=== PATIENT | male | born 1965 | race Caucasian/White ===

== ENCOUNTER 2018-03-25 23:30 | Observation (INO) ==
[2018-03-26] MEDS ORDERED: Sod Chloride 0.9% Inj 1,000 ML IV.SIG ONE (02:15)
[2018-03-26 02:44] LABS: Baso % (Auto) 0.6 % (0.0-2.0); Eos # (Auto) 0.4 th/mm3 (0.0-0.4); Eos % (Auto) 7.5 % (0.0-4.0); Hematocrit 40.6 % (39.0-51.0); Hemoglobin 13.8 gm/dL (13.0-17.0); Lymph # (Auto) 3.1 th/mm3 (1.0-4.8); Lymph % (Auto) 51.5 % (9.0-44.0); Mean Corpuscular Hemoglobin 31.9 pg (27.0-34.0); Mean Corpuscular Volume 93.9 fL (80.0-100.0); Mean Platelet Volume 7.1 fL (7.0-11.0); Mono # (Auto) 0.5 th/mm3 (0.0-0.9); Mono % (Auto) 7.9 % (0.0-8.0); Neut # (Auto) 1.9 th/mm3 (1.8-7.7); Neut % (Auto) 32.5 % (16.0-70.0); Platelet Count 194 th/mm3 (150-450); Red Blood Count 4.33 mil/mm3 (4.50-5.90); Red Cell Distribution Width 13.6 % (11.6-17.2); White Blood Count 5.9 th/mm3 (4.0-11.0)
[2018-03-26 02:53] LABS: Chloride 104 meq/L (98-107); Potassium 3.2 meq/L (3.5-5.1); Sodium 137 meq/L (136-145)
[2018-03-26 02:56] LABS: Calcium 8.4 mg/dL (8.5-10.1)
[2018-03-26 02:57] LABS: Albumin 3.7 g/dL (3.4-5.0); Anion Gap 7 meq/L (5-15); Blood Urea Nitrogen 18 mg/dL (7-18); Carbon Dioxide 25.9 meq/L (21.0-32.0); Glucose,Random 93 mg/dL (74-106); Magnesium 2.1 mg/dL (1.5-2.5)
[2018-03-26 03:00] LABS: Alanine Aminotransferase 55 U/L (12-78); Aspartate Aminotransferase 66 U/L (15-37); Glomerular Filtration Rate 81 mL/min (>89)
[2018-03-26 03:01] LABS: Total Protein 7.2 g/dL (6.4-8.2)
[2018-03-26 03:02] LABS: Alkaline Phosphatase 85 U/L (45-117)
--- NOTE | 2018-03-26 03:27 | CT ---
EXAM DATE: 03/26/2018 3:21 AM EDT AGE/SEX: 52 years / Male INDICATIONS: Tunnel vision. Feels faint. Trauma to head. CLINICAL DATA: This is the patient's initial encounter. Patient reports that signs and symptoms have been present for 1 day and indicates a pain score of 1/10. MEDICAL/SURGICAL HISTORY: . Chronic back pain. . Hernia repair. Unspecified Orthopedic surgery. RADIATION DOSE: 50.59 CTDI (mGy) COMPARISON: No prior exams available for comparison. TECHNIQUE: CT of the head without contrast. Using automated exposure control and adjustment of the mA and/or kV according to patient size, radiation dose was kept as low as reasonably achievable to ob tain optimal diagnostic quality images. DICOM format image data is available electronically for revi ew and comparison. FINDINGS: Cerebrum: The ventricles are normal for age. No evidence of midline shift, mass lesion, hemorrhage or acute infarction. No extraaxial fluid collections are seen. Posterior Fossa: The cerebellum and brainstem are intact. The 4th ventricle is midline. The cerebe llopontine angle is unremarkable. Extracranial: The visualized portion of the orbits is intact. Skull: The calvaria is intact. No evidence of skull fracture. CONCLUSION: 1. No acute intracranial abnormalities. Mucosal thickening in the paranasal sinuses. . Electronically signed by: Moise Mccain MD 03/26/2018 3:26 AM EDT
--- NOTE | 2018-03-26 03:27 | ED ---
HPI General Chief Complaint: Syncope Stated Complaint: Tunnel vision feels faint Time Seen by Provider: 03/26/18 02:11 Source: patient Mode of arrival: ambulatory Limitations: no limitations History of Present Illness HPI Narrative: 52-year-old male who presents to the emergency department for fatigue lightheadedness feeling as if he is going to pass out as he stands up feels like he has tunnel vision that improves when he lays down. Patient denies chest pain or shortness of breath. Patient states he is very fatigued. Patient states he has been walking from [place] to [facility] for a new job. Patient complains of bipedal pain. Patient's had no lower extremity leg pain or swelling. Patient denies nausea vomiting or diaphoresis. Patient's had no fever chills. Patient admits to alcohol use denies substance use. Patient also admits to fall 3 days ago and his head he does not know if he had loss of consciousness or not. Patient has had some headaches since that time. Symptoms seem to be worsened by movement and activity and relieved by laying down or resting. MD complaint: dizziness, lightheadedness and near syncope Onset (ago): hour(s) (since 10:30 pm Monday) Timing: gradual onset Description: lightheadedness History of similar episodes: No History of trauma: Yes Severity: moderate Relieving factors: remaining still Exacerbating factors: movement Associated symptoms: weakness Related Data Home Medications Medication Instructions Recorded Confirmed No Known Home Medications 03/26/18 03/26/18 Allergies Allergy/AdvReac Type Severity Reaction Status Date / Time No Known Allergies Allergy Verified 03/26/18 02:21 Review of Systems ROS: all other systems reviewed are negative [facility] Medical History Medical History History of chronic back pain (Acute) Surgical History Surgical History History of hernia repair (Acute) History of orthopedic surgery (Acute) Social History Social History Substance History: No History of Abuse Smoking Status: Current every day smoker Tobacco Type: Cigarettes How Often Do You Have a Drink Containing Alcohol: 4 or more times a week Recent Out of Country Travel within the Last 8 Weeks: No Immunization History Tetanus Immunization: <5 Years Hx Influenza Vaccine This Season: No Exam Narrative Exam Narrative: GENERAL: Well-developed disheveled male in no acute distress no respiratory distress GCS 15 SKIN: Focused skin assessment warm/dry. HEAD: Atraumatic. Normocephalic. Except for superficial abrasion to the frontal scalp and supraorbital at the left eyebrow abrasion with scabbing in place noted EYES: Pupils equal and round. No scleral icterus. No injection or drainage. ENT: No nasal bleeding or discharge. Mucous membranes pink and moist. NECK: Trachea midline. No JVD. CARDIOVASCULAR: Regular rate and rhythm. No murmur appreciated. RESPIRATORY: No accessory muscle use. Clear to auscultation. Breath sounds equal bilaterally. GASTROINTESTINAL: Abdomen soft, non-tender, nondistended. Hepatic and splenic margins not palpable. MUSCULOSKELETAL: No obvious deformities. No clubbing. No cyanosis. No edema. NEUROLOGICAL: Awake and alert. No obvious cranial nerve deficits. Motor grossly within normal limits. Normal speech. PSYCHIATRIC: Appropriate mood and affect; insight and judgment normal. Course Initial Documented Vital Signs Temperature 97.7 F 03/25/18 23:47 Pulse Rate 78 03/25/18 23:47 Respiratory Rate 18 03/25/18 23:47 Blood Pressure 116/81 03/25/18 23:47 Pulse Oximetry 96 03/25/18 23:47 Last Documented Vital Signs Temperature 97.7 F 03/25/18 23:47 Pulse Rate 55 L 03/26/18 05:32 Respiratory Rate 16 03/26/18 05:32 Blood Pressure 96/63 L 03/26/18 05:32 Pulse Oximetry 99 03/26/18 05:32 Medical Decision Making [facility] Narrative Medical decision making narrative: 52-year-old male presents stating that he feels like he is having tunneling vision like he might pass out. Patient reports he did have a fall 3 days ago and hit his head does not recall having loss of consciousness. No neck pain no arm or leg numbness tingling or weakness. Patient states she is very fatigued and has been walking since from [place] on his way to [facility]. Patient complains of bilateral foot pain secondary to fatigue. Patient does not report any chest pain or shortness of breath or sweats or nausea or vomiting. Patient denies any chronic medical conditions and takes no prescription medications reportedly. Urine drug screen positive for cocaine; patient's cardiac enzymes are in normal range; patient has been given 2 L of fluid and remains low blood pressure with bradycardia; patient given oral replacement potassium Patient will be admitted to medicine service for evaluation of arrhythmia and serial cardiac enzymes Patient's case discussed with Dr. Gayle Medical Screen Exam Complete: Yes Emergency Medical Condition: Yes Differential Diagnosis Differential Diagnosis: Near syncope, syncope, arrhythmia, electrolyte disturbance, ACS, VA, anemia, substance ingestion, alcohol intoxication, minor closed head injury, ICH, thyroid dysfunction Medical Records Medical records reviewed: Yes I reviewed the patient's medical records. no prior records Lab Data Lab results reviewed: Yes I reviewed the patient's lab results. Result diagrams: 03/26/18 02:35 03/26/18 02:35 Lab Results 03/26/18 03/26/18 03/26/18 Range/Units 02:35 02:35 03:15 CBC w Diff Auto diff final WBC 5.9 (4.0-11.0) th/mm3 RBC 4.33 L (4.50-5.90) mil/mm3 Hgb 13.8 (13.0-17.0) gm/dL Hct 40.6 (39.0-51.0) % MCV 93.9 (80.0-100.0) fL MCH 31.9 (27.0-34.0) pg MCHC 34.0 (32.0-36.0) % RDW 13.6 (11.6-17.2) % Plt Count 194 (150-450) th/mm3 MPV 7.1 (7.0-11.0) fL Neut % (Auto) 32.5 (16.0-70.0) % Lymph % (Auto) 51.5 H (9.0-44.0) % [place] % (Auto) 7.9 (0.0-8.0) % Eos % (Auto) 7.5 H (0.0-4.0) % Baso % (Auto) 0.6 (0.0-2.0) % Neut # (Auto) 1.9 (1.8-7.7) th/mm3 Lymph # (Auto) 3.1 (1.0-4.8) th/mm3 [place] # (Auto) 0.5 (0.0-0.9) th/mm3 Eos # (Auto) 0.4 (0.0-0.4) th/mm3 Baso # (Auto) 0.0 (0.0-0.2) th/mm3 WBC Differential . Differential Comment . Sodium 137 (136-145) meq/L Potassium 3.2 L (3.5-5.1) meq/L Chloride 104 (98-107) meq/L Carbon Dioxide 25.9 (21.0-32.0) meq/L Anion Gap 7 (5-15) meq/L BUN 18 (7-18) mg/dL Creatinine 0.97 (0.60-1.30) mg/dL Estimated GFR 81 L (>89) mL/min Random Glucose 93 (74-106) mg/dL Calcium 8.4 L (8.5-10.1) mg/dL Magnesium 2.1 (1.5-2.5) mg/dL Total Bilirubin 0.3 (0.2-1.0) mg/dL AST 66 H (15-37) U/L ALT 55 (12-78) U/L Alkaline Phosphatase 85 (45-117) U/L Troponin I Less than 0.02 L (0.02-0.05) ng/mL Total Protein 7.2 (6.4-8.2) g/dL Albumin 3.7 (3.4-5.0) g/dL TSH 1.360 (0.358-3.740) uIU/mL Urine Color Mary H (Yellw/Straw) Urine Clarity Clear (Clear) Urine pH 6.0 (5.0-8.5) Ur Specific [place] Greater/equal 1.030 (1.002-1.035) Urine Protein Negative (Neg-Trace) mg/dL Urine Glucose (UA) Negative (Negative) mg/dL Urine Ketones Negative (Negative) mg/dL Urine Occult Blood Negative (Negative) Urine Nitrate Negative (Negative) Urine Bilirubin Negative (Negative) Urine Urobilinogen 0.2 (Less than 2) mg/dL Ur Leukocyte Esterase Negative (Negative) Urine RBC 0-3 (0-3) /hpf Urine WBC 0-5 (0-5) /hpf Ur Squamous Epith Cells 0-5 (0-5) /hpf Micro UA Comment Culture not ind Ur Microscopic Review Microscopic reviewed Urine Culture Comments Culture not ind Urine Opiates Screen (Neg) Ur Barbiturates Screen (Neg) Ur Amphetamines Screen (Neg) U Benzodiazepines Scrn (Neg) Urine Cocaine Screen (Neg) U Cannabinoids Screen (Neg) Serum Alcohol Less than 3 (0-5) mg/dL 03/26/18 Range/Units 03:15 CBC w Diff WBC (4.0-11.0) th/mm3 RBC (4.50-5.90) mil/mm3 Hgb (13.0-17.0) gm/dL Hct (39.0-51.0) % MCV (80.0-100.0) fL MCH (27.0-34.0) pg MCHC (32.0-36.0) % RDW (11.6-17.2) % Plt Count (150-450) th/mm3 MPV (7.0-11.0) fL Neut % (Auto) (16.0-70.0) % Lymph % (Auto) (9.0-44.0) % [place] % (Auto) (0.0-8.0) % Eos % (Auto) (0.0-4.0) % Baso % (Auto) (0.0-2.0) % Neut # (Auto) (1.8-7.7) th/mm3 Lymph # (Auto) (1.0-4.8) th/mm3 [place] # (Auto) (0.0-0.9) th/mm3 Eos # (Auto) (0.0-0.4) th/mm3 Baso # (Auto) (0.0-0.2) th/mm3 WBC Differential Differential Comment Sodium (136-145) meq/L Potassium (3.5-5.1) meq/L Chloride (98-107) meq/L Carbon Dioxide (21.0-32.0) meq/L Anion Gap (5-15) meq/L BUN (7-18) mg/dL Creatinine (0.60-1.30) mg/dL Estimated GFR (>89) mL/min Random Glucose (74-106) mg/dL Calcium (8.5-10.1) mg/dL Magnesium (1.5-2.5) mg/dL Total Bilirubin (0.2-1.0) mg/dL AST (15-37) U/L ALT (12-78) U/L Alkaline Phosphatase (45-117) U/L Troponin I (0.02-0.05) ng/mL Total Protein (6.4-8.2) g/dL Albumin (3.4-5.0) g/dL TSH (0.358-3.740) uIU/mL Urine Color (Yellw/Straw) Urine Clarity (Clear) Urine pH (5.0-8.5) Ur Specific [place] (1.002-1.035) Urine Protein (Neg-Trace) mg/dL Urine Glucose (UA) (Negative) mg/dL Urine Ketones (Negative) mg/dL Urine Occult Blood (Negative) Urine Nitrate (Negative) Urine Bilirubin (Negative) Urine Urobilinogen (Less than 2) mg/dL Ur Leukocyte Esterase (Negative) Urine RBC (0-3) /hpf Urine WBC (0-5) /hpf Ur Squamous Epith Cells (0-5) /hpf Micro UA Comment Ur Microscopic Review Urine Culture Comments Urine Opiates Screen Neg (Neg) Ur Barbiturates Screen Neg (Neg) Ur Amphetamines Screen Neg (Neg) U Benzodiazepines Scrn Neg (Neg) Urine Cocaine Screen Pos H (Neg) U Cannabinoids Screen Pos H (Neg) Serum Alcohol (0-5) mg/dL Imaging Data Radiologist's impression: Head CT 03/26/18 02:15 CONCLUSION: 1. No acute intracranial abnormalities. Mucosal thickening in the paranasal sinuses. . ECG Data Attestation: I personally reviewed and interpreted this ECG as follows: Prior ECG tracings: not available for review Interpretation: EKG: Bradycardia with sinus arrhythmia prolonged QT biphasic T- wave in V2 nonspecific Discharge Plan Discharge Disposition Patient Disposition: 30 Still Patient Discharge Condition Condition: Stable Discharge Details Diagnosis: Near syncope, Cocaine abuse Physicians Team ED Provider: Felecia Grimm Primary Care Provider: Primary Care Shelby Gardner Attending Provider: Franny Gayle ED Status: Admitted Observation Patient
[2018-03-26 03:33] LABS: Bilirubin,Urine Negative (Negative); Clarity,Urine Clear (Clear); Glucose,Urine (UA) Negative (Negative); Leukocyte Esterase,Urine Negative (Negative); Nitrite,Urine Negative (Negative); Specific Gravity,Urine Greater/Equal 1.030 (1.002-1.035); Urobilinogen,Urine 0.2 mg/dL (Less than 2)
[2018-03-26 03:34] LABS: Color,Urine Amber (Yellw/Straw)
[2018-03-26 03:37] LABS: RBC,Urine 0-3 /hpf (0-3); Squamous Epithelial Cell,Urine 0-5 /hpf (0-5); WBC,Urine 0-5 /hpf (0-5)
[2018-03-26] MEDS ORDERED: Sod Chloride 0.9% Inj 1,000 ML IV.SIG SCH (04:45)
[2018-03-26 04:46] LABS: Amphetamine Screen,Urine Neg (Neg); Barbiturate Screen,Urine Neg (Neg); Cannabinoid Screen,Urine Pos (Neg); Cocaine Screen,Urine Pos (Neg)
[2018-03-26 04:50] LABS: Opiate Screen,Urine Neg (Neg)
[2018-03-26] MEDS ORDERED: Bisacodyl 10 MG Supp RECTAL PRN (05:43)
[2018-03-26] MEDS ORDERED: Acetaminophen 325 MG Tablet PO PRN (05:43)
[2018-03-26] MEDS: Sod Chloride 0.9% Inj 1,000 ML IV.CONT SCH ×3 (06:04→20:49)
[2018-03-26 08:02] LABS: Creatine Kinase 622 U/L (39-308)
[2018-03-26 08:14] LABS: Creatine Kinase MB 6.2 ng/mL (0.5-3.6)
[2018-03-26] MEDS: Senna/Docusate Sodium 8.6/50 MG Tablet PO SCH (10:23)
--- NOTE | 2018-03-26 11:44 | P.HP ---
History of Present Illness Primary Care Physician: No Primary Care Physician Chief Complaint: Lightheaded, dizziness, weakness, tunnel vision History of Present Illness: 52-year-old male with known history of polysubstance abuse, anxiety who presented the hospital because of lightheadedness, dizziness, weakness, tunnel vision. Patient states that he has not been doing too well over the last few weeks. He is traveling from [place] down to [place] in order to go work in [place]. Patient states that he was over in the [place] area couple weeks ago in which he states he was hospitalized for the same symptoms. He did not elicit or expand on what they did for him at the hospital there. However patient states that last night he got a sudden onset of lightheadedness, dizziness, tunnel vision and profound weakness. He came to the emergency department for evaluation. Patient had full workup perform a CT scan of brain which was unremarkable, laboratory studies which did not indicate any acute abnormality. Patient did have CPK level performed 5 hours after he was here and did show some mild rhabdomyolysis. Nursing staff indicated that patient is very cantankerous, throwing things around the room, making racial slurs. When I evaluated the patient seem to be quite appropriate. Patient was not forthcoming with his abuse. He did openly admit to drinking a pint of bourbon daily. Patient had to be questioned multiple times with final eliciting of that he smoked marijuana 3 days ago as well as he smoked cocaine 3 days ago. Upon leaving the room he motion me back into the room and asked if there are any inpatient treatment programs for alcohol/drug abuse in the area. Patient denies any paresthesia, paralysis, unilateral weakness, slurred speech, dysphagia, facial droop, headache. - Diagnosis (1) Rhabdomyolysis (2) Near syncope (3) Cocaine abuse Review of Systems All other systems reviewed negative except as stated in HPI Eyes: Reports change in vision Neurologic: Reports dizziness, Reports weakness PMFSH - History History Provided By: Patient - Medical History Medical History: Medical History (Last Updated 03/26/18 @ 11:38 by LA NENA Freitas) History of chronic back pain Polysubstance abuse - Surgical History Surgical History: Surgical History (Last Reviewed 03/26/18 @ 11:37 by LA NENA Freitas) History of hernia repair History of orthopedic surgery - Family History Family History: Family History (Last Updated 03/26/18 @ 11:38 by LA NENA Freitas) Father History of myocardial infarction - Tobacco History Second Hand Smoke Exposure: No Tobacco Use In Past 30 Days: Yes Smoking Status: Heavy tobacco smoker Tobacco Type: Cigarettes Packs Per Day: 1 Years Smoked: 36 - Alcohol History How Often Do You Have a Drink Containing Alcohol: 4 or more times a week ( Patient smokes 1 pint of bourbon daily) - Substance Use History Substance History: Active Abuse - Substance Use Type Crack/Cocaine Type: Cracked cocaine Status: Active Route Used: Inhalation Marijuana Status: Active Route Used: Inhalation - Travel History Recent Travel in the [place] Within the Last 8 Weeks: No Recent Travel Out of the Country Within the Last 8 Weeks: No - Immunization History Tetanus Immunization: <5 Years Hx Influenza Vaccine This Season: No Medications and Allergies Active Medications: Active Medications Acetaminophen (Tylenol) 650 mg PO Q4H PRN PRN Reason: Temp > 100.4 Al Hydroxide/Mg Hydroxide (Milk Of Magnesia Liq) 30 ml PO Q12H PRN PRN Reason: Mild Constipation Bisacodyl (Dulcolax Supp) 10 mg RECTAL DAILY PRN PRN Reason: SEVERE CONSITIPATION Sodium Chloride (Ns Inj) 1,000 mls @ 0 mls/hr IV.SIG BOLUS [facility] Last Infusion: 03/26/18 05:32 Dose: Infused Sodium Chloride (Ns Inj) 1,000 mls @ 200 mls/hr IV.CONT .Q5H [facility] Last Admin: 03/26/18 06:04 Dose: 100 mls/hr Lactulose (Lactulose Liq) 30 ml PO DAILY PRN PRN Reason: SEVERE CONSITIPATION Ondansetron HCl (Zofran Inj) 4 mg IV.PUSH Q6H PRN PRN Reason: NAUSEA OR VOMITING Senna/Docusate Sodium (Sherry-Colace) 1 tab PO BID [facility] Last Admin: 03/26/18 10:23 Dose: Not Given Sennosides (Senokot) 17.2 mg PO Q12H PRN PRN Reason: Moderate Constipation Sodium Chloride (Ns Flush) 2 ml IV.FLUSH PRN PRN PRN Reason: FLUSH AFTER USING IV ACCESS Allergies Allergy/AdvReac Type Severity Reaction Status Date / Time No Known Allergies Allergy Verified 03/26/18 02:21 Home Medications Medication Instructions Recorded Confirmed Type No Known Home Medications 03/26/18 03/26/18 History Exam Vital signs: Vital Signs 03/25/18 23:47 03/26/18 02:21 03/26/18 03:37 Temperature 97.7 F Pulse Rate 78 57 L Respiratory Rate 18 15 Blood Pressure 116/81 102/58 L Pulse Oximetry 96 96 100 03/26/18 05:32 03/26/18 07:15 03/26/18 08:43 Temperature Pulse Rate 55 L 56 L 57 L Respiratory Rate 16 16 Blood Pressure 96/63 L 102/57 L Pulse Oximetry 99 Intake & Output 03/25/18 03/26/18 03/26/18 18:59 06:59 18:59 Intake Total 1999 Balance 1999 Weight 65.2 kg Intake: IV 1999 NS Inj 1,000 ML @ Wide Open IV. 1999 SIG BOLUS NOEL Rx#:[id number] Narrative: GENERAL: Well-developed, well-nourished, in no acute distress. alert and orientated HEENT: Head is normocephalic without any lesions or masses noted. Facial features are symmetric. Eyes: Pupils equal round reactive to light. Extraocular muscles are intact. Conjunctivae were clear. Oropharyngeal: Pharynx without any erythema edema. Tongue is midline without deviation. Buccal mucosa is moist without any masses or lesions NECK: Supple without any masses. Trachea midline no deviation. No JVD, no bruits are appreciated CARDIAC: Regular rhythm, regular rate. S1/S2 are heard. No murmurs gallops or rubs. LUNGS: Clear to auscultation bilaterally. No wheeze, rhonchi or rales. No use of accessory muscles on inspiration or expiration. ABDOMEN: Soft, nontender. Nondistended. Bowel sounds heard in all 4 quadrants. No organomegaly or masses. Negative rebound, negative guarding EXTREMITIES: No edema, pulses are equal bilaterally. No cyanosis or clubbing NEUROLOGY: Mood and affect appear appropriate. Cranial nerves II through XII grossly intact. Muscle strength 5/5 in upper and lower extremities bilaterally. Deep tendon reflexes are 2+ in upper and lower extremities bilaterally. Results - Labs CBC & Chem 7: 03/26/18 02:35 03/26/18 02:35 Labs: Laboratory Results - last 24 hr 03/26/18 03/26/18 03/26/18 02:35 02:35 03:15 CBC w Diff Auto diff final WBC 5.9 RBC 4.33 L Hgb 13.8 Hct 40.6 MCV 93.9 MCH 31.9 MCHC 34.0 RDW 13.6 Plt Count 194 MPV 7.1 Neut % (Auto) 32.5 Lymph % (Auto) 51.5 H [place] % (Auto) 7.9 Eos % (Auto) 7.5 H Baso % (Auto) 0.6 Neut # (Auto) 1.9 Lymph # (Auto) 3.1 [place] # (Auto) 0.5 Eos # (Auto) 0.4 Baso # (Auto) 0.0 WBC Differential . Differential Comment . Sodium 137 Potassium 3.2 L Chloride 104 Carbon Dioxide 25.9 Anion Gap 7 BUN 18 Creatinine 0.97 Estimated GFR 81 L Random Glucose 93 Calcium 8.4 L Magnesium 2.1 Total Bilirubin 0.3 AST 66 H ALT 55 Alkaline Phosphatase 85 Total Creatine Kinase CK-MB (CK-2) CK-MB (CK-2) % Troponin I Less than 0.02 L Total Protein 7.2 Albumin 3.7 TSH 1.360 Urine Color Mary H Urine Clarity Clear Urine pH 6.0 Ur Specific [place] Greater/equal 1.030 Urine Protein Negative Urine Glucose (UA) Negative Urine Ketones Negative Urine Occult Blood Negative Urine Nitrate Negative Urine Bilirubin Negative Urine Urobilinogen 0.2 Ur Leukocyte Esterase Negative Urine RBC 0-3 Urine WBC 0-5 Ur Squamous Epith Cells 0-5 Micro UA Comment Culture not ind Ur Microscopic Review Microscopic reviewed Urine Culture Comments Culture not ind Urine Opiates Screen Ur Barbiturates Screen Ur Amphetamines Screen U Benzodiazepines Scrn Urine Cocaine Screen U Cannabinoids Screen Serum Alcohol Less than 3 03/26/18 03/26/18 03:15 07:40 CBC w Diff WBC RBC Hgb Hct MCV MCH MCHC RDW Plt Count MPV Neut % (Auto) Lymph % (Auto) [place] % (Auto) Eos % (Auto) Baso % (Auto) Neut # (Auto) Lymph # (Auto) [place] # (Auto) Eos # (Auto) Baso # (Auto) WBC Differential Differential Comment Sodium Potassium Chloride Carbon Dioxide Anion Gap BUN Creatinine Estimated GFR Random Glucose Calcium Magnesium Total Bilirubin AST ALT Alkaline Phosphatase Total Creatine Kinase 622 H CK-MB (CK-2) 6.2 H CK-MB (CK-2) % 1.0 Troponin I Less than 0.02 L Total Protein Albumin TSH Urine Color Urine Clarity Urine pH Ur Specific [place] Urine Protein Urine Glucose (UA) Urine Ketones Urine Occult Blood Urine Nitrate Urine Bilirubin Urine Urobilinogen Ur Leukocyte Esterase Urine RBC Urine WBC Ur Squamous Epith Cells Micro UA Comment Ur Microscopic Review Urine Culture Comments Urine Opiates Screen Neg Ur Barbiturates Screen Neg Ur Amphetamines Screen Neg U Benzodiazepines Scrn Neg Urine Cocaine Screen Pos H U Cannabinoids Screen Pos H Serum Alcohol - Imaging Impressions Head CT 03/26/18 02:15 CONCLUSION: 1. No acute intracranial abnormalities. Mucosal thickening in the paranasal sinuses. . Caprini VTE Risk Assessment Caprini VTE Risk Assessment: No/Low Risk (score <= 1) Caprini Risk Assessment Model: Point Value = 1 Point Value = 2 Point Value = 3 Point Value = 5 Age 41-60 Minor surgery BMI > 25 kg/m2 Swollen legs Varicose veins or History of unexplained or recurrent spontaneous Oral contraceptives or hormone replacement Sepsis (< 1 month) Serious lung disease, including pneumonia (< 1 month) Abnormal pulmonary function Acute myocardial infarction Congestive heart failure (< 1 month) History of inflammatory bowel disease Medical patient at bed rest Age 61-74 Arthroscopic surgery Major open surgery (> 45 min) Laparoscopic surgery (> 45 min) Malignancy Confined to bed (> 72 hours) Immobilizing plaster cast Central venous access Age >= 75 History of VTE Family history of VTE Factor V Leiden Prothrombin [id number] Lupus anticoagulant Anticardiolipin antibodies Elevated serum homocysteine Heparin-induced thrombocytopenia Other congenital or acquired thrombophilia Stroke (< 1 month) Elective arthroplasty Hip, pelvis, or leg fracture Acute spinal cord injury (< 1 month) Prophylaxis Regimen: Total Risk Factor Score Risk Level Prophylaxis Regimen 0-1 Low Early ambulation 2 Moderate Order ONE of the following: *Sequential Compression Device (SCD) *Heparin 5000 units SQ BID 3-4 Higher Order ONE of the following medications: *Heparin 5000 units SQ TID *Enoxaparin/Lovenox 40 mg SQ daily (WT < 150 kg, CrCl > 30 mL/min) *Enoxaparin/Lovenox 30 mg SQ daily (WT < 150 kg, CrCl > 10-29 mL/min) *Enoxaparin/Lovenox 30 mg SQ BID (WT < 150 kg, CrCl > 30 mL/min) AND/OR *Sequential Compression Device (SCD) 5 or more Highest Order ONE of the following medications: *Heparin 5000 units SQ TID (Preferred with Epidurals) *Enoxaparin/Lovenox 40 mg SQ daily (WT < 150 kg, CrCl > 30 mL/min) *Enoxaparin/Lovenox 30 mg SQ daily (WT < 150 kg, CrCl > 10-29 mL/min) *Enoxaparin/Lovenox 30 mg SQ BID (WT < 150 kg, CrCl > 30 mL/min) AND *Sequential Compression Device (SCD) Assessment and Plan - Assessment (1) Rhabdomyolysis Code(s): M62.82 - Rhabdomyolysis Status: Acute (2) Near syncope Code(s): R55 - Syncope and collapse Status: Acute (3) Cocaine abuse Code(s): F14.10 - Cocaine abuse, uncomplicated Status: Acute - Plan Near-syncope, recurrent -Patient presented with lightheadedness, dizziness, weakness, visual disturbance -Likely secondary to polysubstance abuse, dehydration -CT scan was performed which did not indicate any acute abnormality -Obtain MRI of the brain, carotid ultrasound -Obtain orthostatic vitals Rhabdomyolysis -Likely secondary to patient physical exertion and cocaine use -Continue IV fluids -Continue monitor CPK Polysubstance abuse -Patient counseled on cessation -Case management consulted to supply patient with information for Venu Isidro DVT prevention -Sequential compression devices
--- NOTE | 2018-03-26 13:23 | MR ---
EXAM DATE: 03/26/2018 1:18 PM EDT AGE/SEX: 52 years / Male INDICATIONS: . Weakness. CLINICAL DATA: This is the patient's initial encounter. Patient reports that signs and symptoms have been present for 2 days and indicates a pain score of 0/10. MEDICAL/SURGICAL HISTORY: None. Tonsillectomy. COMPARISON: [facility], CT HEAD W/O CONTRAST, 03/26/2018. . TECHNIQUE: Multiplanar, multisequence examination of the brain was performed without contrast. FINDINGS: Cerebrum: The ventricles are normal for age. No evidence of midline shift, mass lesion, hemorrhage or acute infarction. No extraaxial fluid collections are seen. The pituitary gland and suprasellar cistern are normal in configuration. White Matter: No significant signal abnormalities are seen in the white matter. Posterior Fossa: The cerebellum and brainstem are intact. The 4th ventricle is midline. The cerebel lopontine angle is unremarkable. The cerebellar tonsils are normal in position. Diffusion Imaging: No focal areas of restricted diffusion are seen. No evidence of acute infarction . Extracranial: The visualized portions of the orbits and paranasal sinuses are unremarkable. CONCLUSION: 1. Negative MRI of the brain for an acute ischemic event. 2. There are no white matter changes to suggest a demyelinating process. Electronically signed by: Fransico Townsend MD 03/26/2018 1:21 PM EDT
[2018-03-26 15:47] LABS: CKMB Percent 0.8 % (0.0-4.0); Creatine Kinase MB 5.2 ng/mL (0.5-3.6)
--- NOTE | 2018-03-26 15:54 | US ---
EXAM DATE: 03/26/2018 3:51 PM EDT AGE/SEX: 52 years / Male INDICATIONS: Near syncope. CLINICAL DATA: This is the patient's initial encounter. Patient reports that signs and symptoms have been present for 1 day and indicates a pain score of 0/10. MEDICAL/SURGICAL HISTORY: . Substance use. . Hernia repair. Orthopedic surgery. COMPARISON: No prior exams available for comparison. VELOCITY PARAMETERS: ICA/CCA Ratio: Right 0.9 , Left 0.8 ICA: Right 79 cm/sec, Left 96 cm/sec CCA: Right 92 cm/sec, Left 116 cm/sec ECA: Right 146 cm/sec, Left 137 cm/sec Vertebral: Right 56 cm/sec antegrade, Left 64 cm/sec retrograde FINDINGS: Right Carotid: Mild arteriosclerotic plaque is visualized.The waveforms are within normal limits. Left Carotid: Moderate arteriosclerotic plaque is visualized. The waveforms are within normal limits . Other: None. CONCLUSION: 1. Right Internal Carotid Artery: Findings indicate <50% stenosis. 2. Left Internal Carotid Artery: Findings indicate <50% stenosis. 3. Antegrade flow in both vertebral arteries. Electronically signed by: Gabriel Whitley MD 03/26/2018 3:53 PM EDT
--- NOTE | 2018-03-26 17:43 | ECHRPT ---
Indication: CHEST PAIN CONCLUSIONS The left ventricular systolic function is normal with an estimated ejection fraction in the range of 60-65%. Left ventricular diastolic function parameters are normal. BP: / HR: Rhythm: MEASUREMENTS (Male / Female) Normal Values Technical Quality: 2D ECHO LV Diastolic Diameter PLAX 4.7 cm 4.2 - 5.9 / 3.9 - 5.3 cm LV Systolic Diameter PLAX 3.4 cm IVS Diastolic Thickness 0.8 cm 0.6 - 1.0 / 0.6 - 0.9 cm LVPW Diastolic Thickness 0.9 cm 0.6 - 1.0 / 0.6 - 0.9 cm LV Relative Wall Thickness 0.4 RV Internal Dim ED PLAX 2.0 cm LVOT Diameter 2.0 cm LA Systolic Diameter LX 2.9 cm 3.0 - 4.0 / 2.7 - 3.8 cm LV Ejection Fraction MOD 4C 68.5 % LV Ejection Fraction 4C AL 69.2 % M-MODE Aortic Root Diameter MM 2.1 cm LA Systolic Diameter MM 3.5 cm LA Ao Ratio MM 1.7 AV Cusp Separation MM 2.0 cm DOPPLER AV Peak Velocity 172.0 cm/s AV Peak Gradient 11.8 mmHg LVOT Peak Velocity 118.0 cm/s LVOT Peak Gradient 5.6 mmHg AV Area Cont Eq pk 2.2 cm MV Area PHT 3.3 cm Mitral E Point Velocity 113.0 cm/s Mitral A Point Velocity 84.4 cm/s Mitral E to A Ratio 1.3 LV E' Lateral Velocity 15.1 cm/s Mitral E to LV E' Lateral Ratio 7.5 LV E' Septal Velocity 43.1 cm/s Mitral E to LV E' Septal Ratio 2.6 FINDINGS LEFT VENTRICLE The left ventricular systolic function is normal with an estimated ejection fraction in the range of 60-65%. Normal left ventricular size. Wall thickness is normal. No regional wall motion abnormalities are present. Left ventricular diastolic function parameters are normal. RIGHT VENTRICLE Normal right ventricular size and systolic function. LEFT ATRIUM The left atrial size is normal. RIGHT ATRIUM The right atrial size is normal. ATRIAL SEPTUM Normal atrial septal thickness without atrial level shunting by limited color doppler interrogation. AORTA The aortic root and proximal ascending aorta are normal in size on limited imaging. MITRAL VALVE Structurally normal mitral valve. No mitral valve stenosis or regurgitation. AORTIC VALVE Trileaflet aortic valve. No aortic valve stenosis or regurgitation. TRICUSPID VALVE Structurally normal tricuspid valve. No tricuspid valve stenosis or regurgitation. PULMONARY VALVE The pulmonary valve is not well visualized. VESSELS The inferior vena cava is normal in size. PERICARDIUM No pericardial effusion. Doni Knight DO (Electronically Signed) Final Date:26 March 2018 17:42
--- NOTE | 2018-03-26 18:40 | ECG ---
Date Performed: 03/26/2018 Time Performed: 02:42:16 PTAGE: 52 years EKG: Sinus arrhythmia ABNORMAL ECG NO PREVIOUS TRACING DOCTOR: Chandana Vuong Interpretating Date/Time 03/26/2018 18:38:59
--- NOTE | 2018-03-26 18:41 | ECG ---
Date Performed: 03/26/2018 Time Performed: 07:39:18 PTAGE: 52 years EKG: SINUS BRADYCARDIA Since previous tracing, no significant change noted BORDERLINE ECG PREVIOUS TRACING : 03/26/2018 02.42 DOCTOR: Chandana Vuong Interpretating Date/Time 03/26/2018 18:39:51
[2018-03-27] MEDS: Senna/Docusate Sodium 8.6/50 MG Tablet PO SCH ×2 (03:18→10:15)
[2018-03-27] MEDS: Sod Chloride 0.9% Inj 1,000 ML IV.CONT SCH ×2 (03:20→08:18)
[2018-03-27 06:35] LABS: Baso # (Auto) 0.1 th/mm3 (0.0-0.2); Baso % (Auto) 1.8 % (0.0-2.0); Eos # (Auto) 0.2 th/mm3 (0.0-0.4); Eos % (Auto) 4.4 % (0.0-4.0); Hematocrit 35.1 % (39.0-51.0); Lymph # (Auto) 2.4 th/mm3 (1.0-4.8); Lymph % (Auto) 43.5 % (9.0-44.0); Mean Corpuscular HGB Conc 32.9 % (32.0-36.0); Mean Corpuscular Hemoglobin 31.8 pg (27.0-34.0); Mean Corpuscular Volume 96.4 fL (80.0-100.0); Mean Platelet Volume 7.7 fL (7.0-11.0); Mono # (Auto) 0.3 th/mm3 (0.0-0.9); Mono % (Auto) 6.2 % (0.0-8.0); Neut # (Auto) 2.3 th/mm3 (1.8-7.7); Neut % (Auto) 44.1 % (16.0-70.0); Platelet Count 150 th/mm3 (150-450); Red Blood Count 3.64 mil/mm3 (4.50-5.90); Red Cell Distribution Width 13.4 % (11.6-17.2); White Blood Count 5.3 th/mm3 (4.0-11.0)
[2018-03-27 06:43] LABS: Hemoglobin 11.6 gm/dL (13.0-17.0)
[2018-03-27 07:12] LABS: Alanine Aminotransferase 38 U/L (12-78); Albumin 2.8 g/dL (3.4-5.0); Alkaline Phosphatase 59 U/L (45-117); Anion Gap 6 meq/L (5-15); Aspartate Aminotransferase 43 U/L (15-37); Blood Urea Nitrogen 10 mg/dL (7-18); Calcium 7.7 mg/dL (8.5-10.1); Carbon Dioxide 25.8 meq/L (21.0-32.0); Chloride 113 meq/L (98-107); Glomerular Filtration Rate Greater Than 89 mL/min (>89); Glucose,Random 87 mg/dL (74-106); Potassium 4.3 meq/L (3.5-5.1); Sodium 145 meq/L (136-145); Total Protein 5.6 g/dL (6.4-8.2)
--- NOTE | 2018-03-27 07:23 | P.PN ---
Subjective Interval history: 52-year-old male who is seen and examined today for follow-up on weakness, mild rhabdomyolysis. Patient is doing much better today. Patient denies any new complaints. Patient states that he did call [facility] anticipates going to their office for evaluation. Patient clinically stable. Vital signs are stable. Patient remains afebrile Physical Exam Vital signs: Vital Signs 03/26/18 08:00 03/26/18 08:43 03/26/18 09:05 Temperature Pulse Rate 57 L 50 L Respiratory Rate 16 Blood Pressure 102/57 L Pulse Oximetry 98 03/26/18 12:00 03/26/18 16:00 03/26/18 20:00 Temperature 97.6 F 98.4 F 97.6 F Pulse Rate 77 74 62 Respiratory Rate 20 21 18 Blood Pressure 116/58 L 115/69 123/69 Pulse Oximetry 98 98 98 03/27/18 00:00 03/27/18 04:00 03/27/18 05:43 Temperature Pulse Rate 56 L 60 Respiratory Rate Blood Pressure 105/68 116/72 Pulse Oximetry 96 Intake & Output 03/26/18 03/27/18 03/27/18 18:59 06:59 18:59 Intake Total 1000 / 1000 2480 / 2480 Output Total 450 / 450 Balance 1000 / 1000 2029 Weight 67.1 kg Intake: IV 1000 / 1000 1999 NS Inj 1,000 ML @ 200 mls/hr IV 1000 / 1000 1999 .CONT .Q5H [facility] Rx#:[id number] Oral 480 / 480 Output: Urine 450 / 450 Other: # Voids 3 Date of Last Bowel Movement 03/26/18 # Bowel Movements 2 Narrative: GENERAL: Well-developed, well-nourished, in no acute distress. alert and orientated HEENT: Head is normocephalic without any lesions or masses noted. Facial features are symmetric. Eyes: Extraocular muscles are intact. Conjunctivae were clear. NECK: Supple without any masses. Trachea midline no deviation. No JVD, CARDIAC: Regular rhythm, regular rate. S1/S2 are heard. No murmurs gallops or rubs. LUNGS: Clear to auscultation bilaterally. No wheeze, rhonchi or rales. No use of accessory muscles on inspiration or expiration. ABDOMEN: Soft, nontender. Nondistended. Bowel sounds heard in all 4 quadrants. No organomegaly or masses. Negative rebound, negative guarding EXTREMITIES: No edema, pulses are equal bilaterally. No cyanosis or clubbing NEUROLOGY: Mood and affect appear appropriate. Cranial nerves II through XII grossly intact. Moving all extremities, speech is clear Results - Labs CBC & Chem 7: 03/27/18 04:50 03/27/18 04:50 Laboratory Results - last 24 hr 03/26/18 03/26/18 03/26/18 07:40 14:10 14:10 CBC w Diff WBC RBC Hgb Hct MCV MCH MCHC RDW Plt Count MPV Neut % (Auto) Lymph % (Auto) Hinds % (Auto) Eos % (Auto) Baso % (Auto) Neut # (Auto) Lymph # (Auto) Hinds # (Auto) Eos # (Auto) Baso # (Auto) WBC Differential Differential Comment Sodium Potassium Chloride Carbon Dioxide Anion Gap BUN Creatinine Estimated GFR Random Glucose Calcium Total Bilirubin AST ALT Alkaline Phosphatase Total Creatine Kinase 622 H 637 H CK-MB (CK-2) 6.2 H 5.2 H CK-MB (CK-2) % 1.0 0.8 Troponin I Less than 0.02 L Less than 0.02 L Total Protein Albumin 03/27/18 03/27/18 04:50 04:50 CBC w Diff Auto diff final WBC 5.3 RBC 3.64 L Hgb 11.6 L D Hct 35.1 L MCV 96.4 MCH 31.8 MCHC 32.9 RDW 13.4 Plt Count 150 MPV 7.7 Neut % (Auto) 44.1 Lymph % (Auto) 43.5 Hinds % (Auto) 6.2 Eos % (Auto) 4.4 H Baso % (Auto) 1.8 Neut # (Auto) 2.3 Lymph # (Auto) 2.4 Hinds # (Auto) 0.3 Eos # (Auto) 0.2 Baso # (Auto) 0.1 WBC Differential . Differential Comment . Sodium 145 Potassium 4.3 D Chloride 113 H D Carbon Dioxide 25.8 Anion Gap 6 BUN 10 Creatinine 0.75 Estimated GFR Greater than 89 Random Glucose 87 Calcium 7.7 L Total Bilirubin 0.4 AST 43 H ALT 38 Alkaline Phosphatase 59 Total Creatine Kinase CK-MB (CK-2) CK-MB (CK-2) % Troponin I Total Protein 5.6 L D Albumin 2.8 L D - Imaging Impressions Carotid Doppler Study 03/26/18 00:00 CONCLUSION: 1. Right Internal Carotid Artery: Findings indicate <50% stenosis. 2. Left Internal Carotid Artery: Findings indicate <50% stenosis. 3. Antegrade flow in both vertebral arteries. Head MRI 03/26/18 11:42 CONCLUSION: 1. Negative MRI of the brain for an acute ischemic event. 2. There are no white matter changes to suggest a demyelinating process. Assessment and Plan - Assessment (1) Rhabdomyolysis Code(s): M62.82 - Rhabdomyolysis Status: Acute (2) Near syncope Code(s): R55 - Syncope and collapse Status: Acute (3) Cocaine abuse Code(s): F14.10 - Cocaine abuse, uncomplicated Status: Acute - Plan Near-syncope, recurrent and resolved -Patient presented with lightheadedness, dizziness, weakness, visual disturbance -Likely secondary to polysubstance abuse, dehydration -CT scan was performed which did not indicate any acute abnormality -MRI did not indicate any acute abnormality -Carotid ultrasound did not indicate any acute abnormality -Orthostatic vitals were stable Rhabdomyolysis, stable -Likely secondary to patient physical exertion and cocaine use -Continue IV fluids -Continue monitor CPK Polysubstance abuse -Patient counseled on cessation -Case management consulted to supply patient with information for [facility] -Patient anticipates going to [facility] for further evaluation DVT prevention -Sequential compression devices Discharge Planning: Discharge home in stable condition Activity: Ad juani. Diet: Regular diet Medication per medication reconciliation Follow-up with primary medical doctor in 1 week
--- NOTE | 2018-03-27 14:08 | ECG ---
Date Performed: 03/26/2018 Time Performed: 14:18:40 PTAGE: 52 years EKG: Sinus rhythm WITH SINUS ARRHYTHMIA NORMAL ECG Since the PREVIOUS TRACING , no significant change noted PREVIOUS TRACIN03/26/2018 07.39 DOCTOR: John Song Interpretating Date/Time 03/27/2018 14:04:35
== END 2018-03-27 11:44 | disposition home or self-care (01) ==
LOC: PHEDA 23:30 → PHED 23:30 → PHEDA 03-26 08:46 → PH3 03-26 09:17
PROVIDERS: ADMIT Hospitalist; ATTEND Hospitalist
DX: M54.9 Dorsalgia, unspecified; F12.90 Cannabis use, unspecified, uncomplicated; F17.210 Nicotine dependence, cigarettes, uncomplicated; R55 Syncope and collapse; F14.10 Cocaine abuse, uncomplicated; E86.0 Dehydration; W19.XXXA Unspecified fall, initial encounter; Z82.49 Family history of ischemic heart disease and other diseases of the circulatory system; S00.212A Abrasion of left eyelid and periocular area, initial encounter; M62.82 Rhabdomyolysis; G89.29 Other chronic pain